=== PATIENT | female | born 1970 | race Caucasian/White ===

== ENCOUNTER 2018-04-06 21:23 | Emergency (ER) | payer OTHER ==
[~2018-04-06] VITALS: Ht 170.2 cm; Wt 77.1 kg
[~2018-04-06 21:23] MED LIST: HYDROXYZINE50 MG PO; PREDNISONE10 MG PO
[2018-04-06 21:50] VITALS: BP 147/75
--- NOTE | 2018-04-06 23:20 | ED ANIMAL BITE/WOUND CHECK ---
History of Present Illness General Chief Complaint: Animal/Insect Bite Stated Complaint: STUNG BY BEE NEAR R BREAST, SWOLLEN PER PT Source: patient, family Exam Limitations: no limitations Vital Signs & Intake/Output Vital Signs & Intake/Output Vital Signs Date Time Temp Pulse Resp B/P B/P Pulse O2 O2 Flow FiO2 Mean Ox Delivery Rate 04/06 2150 96.0 94 20 147/75 96 Room Air Allergies Coded Allergies: sulfamethoxazole (From BACTRIM) (HIVES 04/06/18) trimethoprim (From BACTRIM) (HIVES 04/06/18) Reconcile Medications Cephalexin (Keflex) 500 MG CAPSULE 1 CAP PO TID rash Hydroxyzine Hydrochloride (Hydroxyzine) 50 MG TAB 1 TAB PO TID PRN ITCHING Prednisone 10 MG TAB 0 TAB PO DAILY DERMATITIS 5 TABS PO DAY 1 4 TABS DAY 2 3 TABS DAY 3 2 TABS DAY 4 1 TAB DAY 5 Prednisone (Deltasone) 20 MG TABLET 2 TAB PO DAILY rash Triage Note: PT TO ED C/O BEE STING TO RT BREAST YESTERDAY. STATES BREAST IS MORE SWOLLEN TODAY. IS NOW RED, RAISED AND ITCHY. 50 MG BENADRYL AT APPROX 1800 Triage Nurses Notes Reviewed? yes Onset: Abrupt Duration: day(s): Timing: recent history Is Injury an Animal Bite? No HPI: 47yo female presents emergency department complaining of bee sting occurring a few days ago with persistent rash. Patient states that she was stung by a bee above her right breast and noticed a small bump to area. Patient reports gradual increase in redness since the initial sting. She has been taking Benadryl without relief of her symptoms. She describes the area as itchy. No known Allergies to bees. (Deanna Tracy) Past History Travel History Traveled to [place] past 21 day No Medical History Any Pertinent Medical History? see below for history Gastrointestinal: GERD Surgical History Surgical History: N Psychosocial History What is your primary language Mohawk Tobacco Use: Never used ETOH Use: occasional use Illicit Drug Use: denies illicit drug use Family History Hx Contributory? No (Deanna Tracy) Review of Systems Review of Systems Constitutional: Reports: no symptoms. EENTM: Reports: no symptoms. Respiratory: Reports: no symptoms. Cardiovascular: Reports: no symptoms. GI: Reports: no symptoms. Genitourinary: Reports: no symptoms. Musculoskeletal: Reports: no symptoms. Skin: Reports: see HPI. Neurological/Psychological: Reports: no symptoms. Hematologic/Endocrine: Reports: no symptoms. Immunologic/Allergic: Reports: no symptoms. All Other Systems: Reviewed and Negative (Deanna Tracy) Physical Exam Physical Exam General Appearance: well developed/nourished, no apparent distress, alert, awake Head: atraumatic, normal appearance Eyes: Bilateral: normal appearance. Ears, Nose, Throat: hearing grossly normal Neck: normal inspection, supple, full range of motion Respiratory: normal breath sounds, no respiratory distress, lungs clear Cardiovascular: regular rate/rhythm Back: normal inspection, normal range of motion Extremities: normal range of motion Neurologic/Psych: awake, alert, oriented x 3 Skin: erythematous flat patch superior to right breast, +warmth, -tenderness, - induration or fluctuance (Deanna Tracy) Progress Differential Diagnosis: abscess, cellulitis, uticaria, hives, allergic reaction Plan of Care: Symptoms most consistent with rash relating to allergic reaction/irritation from bee sting. There is a possibility of cellulitis given the break in her skin with increasing redness. We will treat with Benadryl, prednisone, Keflex. Patient encouraged to follow up with her primary care doctor. She is in no acute distress, no respiratory symptoms. The patient agrees with the plan of care. (Deanna Tracy) Departure Departure Disposition: HOME OR SELF CARE Condition: Stable Clinical Impression Primary Impression: Bee sting Qualifiers: Encounter type: initial encounter Injury intent: accidental or unintentional Qualified Code: T63.441A - Toxic effect of venom of bees, accidental (unintentional), initial encounter Secondary Impressions: Rash Referrals: Patient Has No Primary Care Dr (PCP/Family) Additional Instructions: Take full course of steroids. Take full course of antibiotics. Follow-up with your primary care doctor. Return if Worsening symptoms or concerns. Please note that there might be incidental findings in your evaluation that are unrelated to the current emergency department visit. Please notify your primary care doctor about this emergency department visit in order to obtain and review all of the testing performed so that these incidental findings can be monitored as needed. If you had an x-ray performed, please understand that some fractures may not be seen on the initial set of x-rays. If your symptoms persist you might need a repeat set of x-rays to check for such a fracture. If you had a laceration evaluated, please understand that foreign bodies such as glass or wood may not be visible to the naked eye or on plain x-rays. If the wound becomes red, swollen, increasingly more painful or if there is any drainage from the wound, please have it reevaluated by a physician for the possibility of a retained foreign body. If you're unable to follow up as outlined in the discharge instructions please return to the emergency department. Thank you for choosing the [facility] Emergency Department for your care. It was a pleasure to serve you today. Departure Forms: Customer Survey General Discharge Information Prescriptions: Current Visit Scripts Cephalexin (Keflex) 1 CAP PO TID #21 CAP Prednisone (Deltasone) 2 TAB PO DAILY #10 TAB (Kristan PRADO,Deanna Chris) PA/QUALITY IMPROVEMENT COORDINATOR Co-Sign Statement Statement: ED Attending supervision documentation- I saw and evaluated the patient. I have also reviewed all the pertinent lab results and diagnostic results. I agree with the findings and the plan of care as documented in the PA's/QUALITY IMPROVEMENT COORDINATOR's documentation. x I have reviewed the ED Record and agree with the PA's/QUALITY IMPROVEMENT COORDINATOR's documentation. [] Additions or exceptions (if any) to the PAs/QUALITY IMPROVEMENT COORDINATOR's note and plan are summarized below: [] (Elodia HOWELL,Jose)
[2018-04-06] MEDS ORDERED: KEFLEX500 M1 PO (23:21)
[2018-04-06] MEDS ORDERED: DELTASONE20 MG PO (23:21)
== END 2018-04-06 23:29 ==
LOC: ERH 21:23
DX: T63.441A Toxic effect of venom of bees, accidental (unintentional), initial encounter (principal)